=== PATIENT | male | born 1945 | race Caucasian/White ===

== ENCOUNTER 2022-11-06 13:59 | Outpatient (CLI) | payer MEDICARE, BC | END 2022-11-06 14:00 | disposition home or self-care (01) | LOC: CSHCP 13:59 | PROVIDERS: ATTEND Internal Medicine | DX: J84.9 Interstitial pulmonary disease, unspecified (principal); R94.2 Abnormal results of pulmonary function studies | CPT/HCPCS: 94060; 94618; 94726; 94729 ==